=== PATIENT | female | born 1985 | race American Indian/Alaskan Native ===

== ENCOUNTER 2020-08-13 06:42 | Day surgery (SDC) | payer OTHER ==
[2020-08-13] MEDS ORDERED: SODIUM CHLORIDE 0.9% 1000 ML 1,000 ML IV SCH (07:00)
[2020-08-13] MEDS ORDERED: LIDOCAINE MPF (2%) 20 MG/1 ML VIAL 5 ML ONE (07:19)
[2020-08-13] MEDS ORDERED: fentaNYL 100 MCG/2 ML INJ ONE (07:20)
[2020-08-13] MEDS ORDERED: propofoL 200 MG/20 ML VIAL IV ONE ×4 (07:20→08:40)
--- NOTE | 2020-08-13 08:33 | Anesthesia Consultation ---
Anesthesia Consult and Med Hx Date of service: 08/13/20 - Airway Anesthetic Teeth Evaluation: Good ROM Head & Neck: Adequate Mental/Hyoid Distance: Adequate Mallampati Class: Class II Intubation Access Assessment: Probably Good - Pre-Operative Health Status ASA Pre-Surgery Classification: ASA2 Proposed Anesthetic Plan: General - Pulmonary Hx Smoking: No Hx Respiratory Symptoms: No - Cardiovascular System Hx Hypertension: Yes (no rx) Hx Heart Attack/AMI: No - Central Nervous System CVA: No - Endocrine Hx Renal Disease: No Hx Liver Disease: No Hx Insulin Dependent Diabetes: No Hx Non-Insulin Dependent Diabetes: No Hx Thyroid Disease: No - Other Systems Hx Obesity: No - Additional Comments Anesthesia Medical History Comments: No prior anesthetics. No FHx anesthetic complications.
--- NOTE | 2020-08-13 08:33 | Anesthesia Day of Surgery ---
Anesthesia Day of Surgery - Day of Surgery Patient Examined: Yes Patient H&P Reviewed: Yes Patient is NPO: Yes
[2020-08-13] MEDS ORDERED: LIDOCAINE 2% UROJECT 10 ML JELLY ONE (08:48)
[2020-08-13] MEDS ORDERED: LIDOCAINE 2% UROJECT 10 ML JELLY UR ONE (09:10)
--- NOTE | 2020-08-13 09:37 | Procedure Note ---
Date of procedure: 08/13/20 Pre-op diagnosis: Abdominal Pain, Diarrhea and GI Bleeding Post-op diagnosis: other (Mild to Moderate Erosive Esophagitis/ R/O Eosinophilic Esophagitis/Small,Hiatal hernia/Gastritis/R/O Celaic Disease/R/O Microscopic colitis/ Hematochezia secondary to Internal Hemorrhoids s/p Banding x 3) Procedure: EGD with Biopsy and Colonoscopy with Biopsy and Flexible Sigmoidoscopy with Banding x 3 Anesthesia: MAC Surgeon: THOMAS TORRES Estimated blood loss: minimal Pathology: list Specimen disposition: to lab Condition: stable Disposition: same day (Treat with PPI,Tramadol and OTC Imodium AD prn and Anusol HC Supp. Avoid aspirin and NSAID for 5 days and follow up in 1 to 2 weeks.)
--- NOTE | 2020-08-13 09:57 | Operative Report ---
PROCEDURE: Esophagogastroduodenoscopy with biopsy. INDICATION: This is a 35-year-old female in otherwise good health, who has lately been having abdominal pain, GI bleeding that had prompted her to go to the Emergency Room. EGD was done to make sure there was not any significant upper GI pathology present. DESCRIPTION OF PROCEDURE: The procedure was done after getting informed consent with MAC anesthesia. Instrument was passed through the hypopharynx into the esophagus, which showed some [id number] erosive esophagitis. The stomach showed a small hiatal hernia on the retroverted view. The pylorus was patent. The duodenum in the first and second portion appeared normal. Biopsy was done from the second part to rule out for possible celiac disease. Additional biopsy was done from the gastric antrum, gastric body and angular incisura to rule out for H. pylori and atrophic gastritis. Additional biopsy was also done from the distal esophagus to assess for the severity of the erosive esophagitis and from the mid esophagus to rule out eosinophilic esophagitis. There was minimal bleeding associated with the procedure. There was no active bleeding noted in the upper GI tract and no evidence of any peptic ulcer disease. ASSESSMENT: History of gastrointestinal bleeding, abdominal pain. No active upper gastrointestinal bleeding noted. No peptic ulcer disease noted, small hiatal hernia, gastritis, dbfk-wh-[id number] erosive esophagitis, rule out eosinophilic esophagitis, rule out celiac disease. PLAN: To treat the patient with PPI, have the patient avoid aspirin and aspirin-related products for the next few days and to do a colonoscopy for further assessment of the patient's diarrhea and abdominal pain and GI bleeding. The procedure was done in the GI lab with assistance of the GI lab team, which included Jeff guillaume, with assistance of the GI nurse and with assistance of anesthesia. JOB# [id number] SHANTELL/WES
--- NOTE | 2020-08-13 10:06 | Operative Report ---
PROCEDURE: Flexible sigmoidoscopy with banding x 3. INDICATIONS: A 35-year-old female who has been having hematochezia. She had EGD and colonoscopy done because of abdominal pain and associated diarrhea. EGD showed presence of esophagitis, gastritis, a small hiatal hernia, but no peptic ulcer disease. Colonoscopy showed moderate internal hemorrhoid, which was the possible cause of the patient's bleeding. DESCRIPTION OF PROCEDURE: The procedure was done after introducing the EGD scope with the banding apparatus that was then retroflexed. Three of the largest bands were then suctioned into the suction channel. Five bands were deployed, two did not take and three hemorrhoids were banded. Lidocaine gel was then injected into the rectal vault following the banding. ASSESSMENT: Hematochezia secondary to internal hemorrhoids, status post banding x 3. PLAN: Treat the patient with tramadol, Anusol-HC suppositories, Sitz bath and have the patient avoid aspirin and aspirin-related products for the next few days and because of the EGD findings of esophagitis and gastritis also to place the patient on PPI. The patient will be asked to follow up in the office in 1-2 weeks' time. The procedure was done in the GI lab with assistance of the GI lab team, which included Jeff guillaume, with assistance of the GI nurse and anesthesia. JOB# [id number] SHANTELL/WES
--- NOTE | 2020-08-13 10:46 | Operative Report ---
PROCEDURE: Colonoscopy. INDICATIONS: This is a 35-year-old -[place] female who has been complaining of diarrhea and GI bleeding. EGD did not show any peptic ulcer disease, did show small hiatal hernia, some gastritis and sach-jp-hwqzurzy erosive esophagitis. Biopsy was also done to rule out for possible celiac disease. Colonoscopy was done to make sure there was not any significant lower GI pathology present. DESCRIPTION OF PROCEDURE: Initial rectal exam showed presence of [id number]-tg-lfyvapmq external hemorrhoids, and the instrument was passed through the rectum onto the cecum, which was identified with ileocecal valve and the appendiceal orifice. Visualization was fair to good. The terminal ileum could only be briefly noted at one time, which showed normal mucosa, but biopsies could not be done. Random biopsies were done through the cecum, ascending colon, transverse colon, descending colon, and sigmoid, which essentially showed normal mucosa. There was no endoscopic evidence of colitis, diverticular disease or polyp. The rectum did show moderate internal hemorrhoid, which may have been the cause of the patient's hematochezia. ASSESSMENT: Gastrointestinal bleeding possibly secondary to moderate internal hemorrhoids, rule out microscopic colitis. No colon polyps or diverticular disease or endoscopic evidence of colitis was noted. PLAN: To wait for the biopsy results, have the patient avoid aspirin and aspirin-related products for the next few days, empirically treat the patient with antidiarrheal medicines and to do a flexible sigmoidoscopy with banding to treat for the moderate internal hemorrhoids, which is the cause of the patient's hematochezia. The procedure was done in the GI lab with assistance of the GI lab team, which included Jeff guillaume, the GI nurse and with assistance of anesthesia. JOB# [id number] SHANTELL/WES
[2020-08-13 10:53] VITALS: BP 130/69
--- NOTE | 2020-08-13 11:51 | Post Anesthesia Evaluation ---
- Post Anesthesia Evaluation Patient Participated: Yes Airway Patent: Yes Stable Respiratory Function: Yes Nausea/Vomiting: No Temp > 96.8F: Yes Pain Manageable: Yes Adequeate Hydration: Yes Anesthesia Complications: No
== END 2020-08-13 11:15 | disposition home or self-care (01) ==
LOC: GIO 06:42
DX: K92.1 Melena (principal); K92.2 Gastrointestinal hemorrhage, unspecified; R10.9 Unspecified abdominal pain; K64.8 Other hemorrhoids; K21.00 Gastro-esophageal reflux disease with esophagitis, without bleeding; F17.210 Nicotine dependence, cigarettes, uncomplicated; I10 Essential (primary) hypertension; K31.89 Other diseases of stomach and duodenum; K63.89 Other specified diseases of intestine; B96.81 Helicobacter pylori [H. pylori] as the cause of diseases classified elsewhere; Z79.899 Other long term (current) drug therapy
CPT/HCPCS: 43239; 45380; 46221; 81025; 88305; 88342; J2704; J3010; J7030

== ENCOUNTER 2021-04-08 06:43 | Day surgery (SDC) | payer OTHER ==
[2021-04-08] MEDS ORDERED: SODIUM CHLORIDE 0.9% 1000 ML 1,000 ML IV SCH (07:00)
--- NOTE | 2021-04-08 07:49 | Anesthesia Day of Surgery ---
Anesthesia Day of Surgery - Day of Surgery Patient Examined: Yes Patient H&P Reviewed: Yes Patient is NPO: Yes
--- NOTE | 2021-04-08 07:49 | Anesthesia Consultation ---
Anesthesia Consult and Med Hx Date of service: 04/08/21 - Airway Anesthetic Teeth Evaluation: Good ROM Head & Neck: Adequate Mental/Hyoid Distance: Adequate Mallampati Class: Class II Intubation Access Assessment: Probably Good - Pre-Operative Health Status ASA Pre-Surgery Classification: ASA2 Proposed Anesthetic Plan: MAC - Pulmonary Hx Smoking: No (past smoker) Hx Asthma: No Hx Respiratory Symptoms: No SOB: No COPD: No Home Oxygen Therapy: No Hx Pneumonia: No Hx Sleep Apnea: No - Cardiovascular System Hx Hypertension: Yes (no rx) Hx Coronary Artery Disease: No Hx Heart Attack/AMI: No Hx Angina: No Hx Percutaneous Transluminal Coronary Angioplasty (PTCA): No Hx Cardia Arrhythmia: No Hx Pacemaker: No Hx Internal Defibrillator: No Hx Valvular Heart Disease: No Hx Heart Murmur: Yes Hx Peripheral Vascular Disease: No - Central Nervous System Hx Neuromuscular Disorder: No Hx Seizures: No CVA: No Hx Back Pain: No Hx Psychiatric Problems: No - Gastrointestinal Hx Ulcer: No Hx Gastroesophageal Reflux Disease: No - Endocrine Hx Renal Disease: No Hx End Stage Renal Disease: No Hx Cirrhosis: No Hx Liver Disease: No Hx Insulin Dependent Diabetes: No (pre-diabetes) Hx Non-Insulin Dependent Diabetes: No Hx Thyroid Disease: No Hx Hypothyroidism: No Hx Hyperthyroidism: No - Hematic Hx Anemia: Yes Hx Sickle Cell Disease: No - Other Systems Hx Alcohol Use: Yes (occ.) Hx Substance Use: No Hx Cancer: No Hx Obesity: No
[2021-04-08] MEDS ORDERED: LIDOCAINE MPF (2%) 20 MG/1 ML VIAL 5 ML ONE (08:55)
[2021-04-08] MEDS ORDERED: propofoL 200 MG/20 ML VIAL IV ONE ×2 (08:55→09:06)
--- NOTE | 2021-04-08 09:23 | Procedure Note ---
Date of procedure: 04/08/21 Pre-op diagnosis: Hematochezia Post-op diagnosis: other (Hematochezia secondary prominent Internal and External Hemorrhoids/ Normal Colon Mucosa (no colon polyp or Diverticular Disease noted)) Procedure: Colonoscopy Anesthesia: MAC Surgeon: THOMAS TORRES Estimated blood loss: none Pathology: none Specimen disposition: to lab Condition: stable (Anusol HC Supp and Sitz Bath; resume jhome medication F/U as an Oupatient in 1 to 2 weeks ([phone]). Refer patient to a [facility] [facility]-rectal Surgeon.) Disposition: same day (with Sitz bath and Anusol HC supp; F/U in 1 to 2 weeks ([phone]). Refer patient to a Colorectal Surgeon.)
--- NOTE | 2021-04-08 09:40 | Operative Report ---
DATE OF SURGERY: 04/08/2021 PROCEDURE: Colonoscopy. INDICATIONS: This is a 35-year-old otherwise healthy -[place] female, who has been having hematochezia. She has had a colonoscopy with banding done in the past. She has had problems with the hematochezia and has come for a repeat colonoscopy for further evaluation of her problem and banding if required. DESCRIPTION OF PROCEDURE: Procedure was done after getting informed consent. Initial rectal examination showed presence of prominent external hemorrhoids and sentinel tags. The instrument was passed through the rectum onto the cecum, which was identified with ileocecal valve and the appendiceal orifice. Visualization was fair to good. The cecum was also visualized on the retroverted view. No additional pathology was noted and the scope was withdrawn to the hepatic flexure and reintroduced to the cecum. No additional pathology was noted in the cecum, ascending colon, transverse colon, descending colon, and sigmoid. On the retroverted view, there was very prominent internal hemorrhoids noted as well, which was the cause of the patient's hematochezia. ASSESSMENT: Hematochezia secondary to prominent external as well as internal hemorrhoids. PLAN: To treat the patient with Sitz baths, Anusol-HC suppositories and I have referred the patient to a colorectal surgeon since the hemorrhoids was so prominent for treatment of both the internal and external hemorrhoids. The patient will be asked to follow up in the office in 1-2 weeks' time and resume home medication. Procedure was done in the GI lab with assistance of the GI lab team, which included the GI nurse, the orthopaedic technologist and with assistance of Anesthesia. TID: [id number] RECEIPT: [id number] SHANTELL/CAMRYN
[2021-04-08 14:59] VITALS: BP 120/72
== END 2021-04-08 14:30 | disposition home or self-care (01) ==
LOC: GIO 06:43
DX: K92.1 Melena (principal); K64.8 Other hemorrhoids; K57.30 Diverticulosis of large intestine without perforation or abscess without bleeding; K63.89 Other specified diseases of intestine; I10 Essential (primary) hypertension; D64.9 Anemia, unspecified; Z79.899 Other long term (current) drug therapy; Z98.890 Other specified postprocedural states
CPT/HCPCS: 45378; J2704; J3490; J7030; J7120; Q0162